=== PATIENT | male | born 1985 | race Caucasian/White ===

== ENCOUNTER 2016-07-20 23:59 | Emergency (ER) | payer BC ==
[2016-07-21] MEDS ORDERED: Ondansetron 4 MG/2 ML SDV IVPUSH ONE (00:48)
[2016-07-21] MEDS ORDERED: Sodium Chloride 0.9% 1,000 ML IV ONE ×2 (00:50→01:37)
[2016-07-21] MEDS ORDERED: fentaNYL 100 MCG/2 ML SDV IVPUSH ONE (01:35)
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
[2016-07-21] MEDS ORDERED: HYDROmorphone 0.5 MG/0.5 ML Syringe IVPUSH ONE (03:09)
[2016-07-21] MEDS ORDERED: HYDROmorphone 0.5 MG/0.5 ML Syringe ONE (03:13)
[2016-07-21] MEDS ORDERED: Dicyclomine 10 MG Cap PO ONE (04:04)
[2016-07-21] MEDS ORDERED: Iopamidol 612 MG/ML 150 ML Bottle IVPUSH ONE (06:13)
[2016-07-21] MEDS ORDERED: Diatrizoate Meglumine/Diatrizoate Sodium 37% 120 ML Bottle PO ONE (06:13)
--- NOTE | 2016-07-21 06:57 | CT ---
CT abdomen and pelvis Technique: Multiple axial sections were obtained from above the dome of the diaphragm inferiorly through the pubic symphysis. Intravenous and oral contrast was utilized. Comparison: No previous abdominal or pelvic CT exam, previous abdominal x-ray performed earlier on the same day is available. Findings: Visualized lung bases shows no acute change. Liver shows no focal parenchymal abnormality. Spleen appears within normal limits. Adrenal glands show no nodule. Pancreas is within normal limits. Kidneys show symmetric contrast enhancement without hydronephrosis or mass. Gallbladder shows no calcified gallstones. Aorta shows no aneurysmal dilatation. No retroperitoneal adenopathy or mesenteric abnormalities are seen. No pelvic mass or adenopathy is seen. Appendix is seen which appears normal. No pelvic mass or adenopathy is seen. Air-fluid levels are seen within the rectum and sigmoid colon and please correlate if patient has any symptoms of diarrhea. No small bowel dilatation is seen with contrast seen throughout small bowel into the colon. No free fluid or inflammatory change is seen. Delayed images shows contrast within the distal ureters and within the bladder. Bone window settings were reviewed which appears within normal limits for the patient's age. Small fat-containing umbilical hernia is noted. Impression: 1. Air-fluid levels within the rectosigmoid region. This may be incidental but may also be seen with diarrhea. Please correlate. 2. Several incidental findings as noted above. CT study of the abdomen and pelvis is otherwise unremarkable. Diagnostic code #2
[2016-07-21 07:46] VITALS: BP 122/71
--- NOTE | 2016-07-22 07:36 | CR ---
Abdomen: Supine and upright views of the abdomen were obtained. Scattered air-fluid levels within colon and small bowel are seen. Bowel gas pattern is otherwise unremarkable. Calcifications seen within the pelvis are likely due to phleboliths. Bony structures are unremarkable. No free air is seen. Impression: 1. Air-fluid levels within small bowel and colon which may be seen with gastroenteritis. No findings of bowel obstruction are seen. Diagnostic code #3
== END 2016-07-21 07:35 | disposition home or self-care (01) ==
LOC: JD.ED 23:59
DX: A08.4 Viral intestinal infection, unspecified (principal); R10.9 Unspecified abdominal pain; E78.00 Pure hypercholesterolemia, unspecified; J45.909 Unspecified asthma, uncomplicated; F41.9 Anxiety disorder, unspecified; Z88.8 Allergy status to other drugs, medicaments and biological substances; Z79.899 Other long term (current) drug therapy
CPT/HCPCS: 36415; 74020; 74177; 80053; 81001; 83690; 85025; 86140; 96361; 96374; 96375; 99285; J1170; J2405; J3010; J7040; Q9963; Q9967; 99284

== ENCOUNTER 2016-11-08 22:39 | Emergency (ER) | payer BC ==
[2016-11-08] MEDS ORDERED: Ondansetron 4 MG/2 ML SDV IVPUSH ONE (23:25)
[2016-11-08] MEDS ORDERED: HYDROmorphone 0.5 MG/0.5 ML Syringe IVPUSH ONE (23:26)
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
[2016-11-09] MEDS ORDERED: HYDROmorphone 1 MG/ML Syringe IVPUSH ONE (00:19)
[2016-11-09 01:24] VITALS: BP 143/59
--- NOTE | 2016-11-11 08:10 | CT ---
CT thoracic spine Technique: Multiple axial sections were obtained through the thoracic spine. Reconstructed sagittal and coronal images were reviewed. Comparison: No previous thoracic spine study. Findings: Vertebral body heights and disc spaces are maintained. Posterior ribs are intact. Vertebral bodies and posterior arches are intact. No fracture is seen. No bony central or bony neural foraminal stenosis is seen. No abnormal subluxation is seen on the reconstructed sagittal images. Minimal endplate osteophytes are seen laterally on the right side at T8-T9. Impression: 1. Minimal degenerative change. Nothing acute is seen on CT study of the thoracic spine. Diagnostic code #2 Agree with preliminary report issued by [facility] ([facility] report dictated on 11/09/16, 12:55 AM Central Time)
--- NOTE | 2016-11-11 08:10 | CR ---
Left shoulder: Three views of the left shoulder were obtained. Acromioclavicular and glenohumeral joints appear unremarkable. No fracture or other bony abnormality is seen. Impression: 1. No abnormality is identified on three-view left shoulder study. Diagnostic code #1
--- NOTE | 2016-11-11 08:10 | CT ---
CT cervical spine Technique: Multiple axial sections were obtained from above the C1 inferiorly to the bottom of T2. Reconstructed sagittal and coronal images were reviewed. Comparison: Previous CT cervical spine exam of 10/11/15. Findings: Visualized mastoid sinuses and middle ear cavities are clear. Posterior skull base is intact. Vertebral body heights and disc spaces are maintained. Vertebral bodies and posterior arches are intact. No fracture is seen. No bony central or bony neural foraminal stenosis is seen. No abnormal subluxation is seen. Impression: 1. No abnormality is identified on CT study of the cervical spine. No significant change is seen from previous CT cervical spine exam. Diagnostic code #1 Agree with preliminary report issued by [facility] ([facility] report dictated on 11/09/16, 12:31 AM Central Time)
--- NOTE | 2016-11-11 08:11 | CT ---
Head CT Technique: Multiple axial sections through the brain were obtained. Intravenous contrast was not utilized. Comparison: Previous head CT study of 10/11/15. Findings: Ventricles along with basal cisterns and sulci over the convexities are within normal limits for the patient's age. No abnormal parenchymal densities are seen. No evidence of intracranial hemorrhage. No midline shift or mass effect is seen. Bone window settings were reviewed which show no acute calvarial abnormality. Visualized sinuses are clear. Impression: 1. Nothing acute is identified on noncontrast head CT study. No significant change is seen from prior head CT exam. Diagnostic code #1 Agree with preliminary report issued by [facility] ([facility] report dictated on 11/09/16, 12:29 AM Central Time)
--- NOTE | 2016-11-11 08:11 | CT ---
Chest CT chest Technique: Multiple axial sections were obtained from above the lung apices inferiorly through the lung bases. Intravenous contrast was utilized. Comparison: Previous CT pulmonary angiogram performed on 02/14/11. Findings: No pericardial thickening is seen. Mediastinum and hilar regions appear normal. Slight soft tissue density is seen within the superior mediastinum which is compatible with minimal residual thymic tissue. Lungs are clear. No pleural effusion or pneumothorax is seen. Bone window settings were reviewed which show no discrete abnormality within the sternum on the reconstructed sagittal images. No discrete rib abnormality is appreciated. Impression: 1. Nothing acute is identified on CT study of the chest. Diagnostic code #1 Agree with preliminary report issued by [facility] ([facility] report dictated on 11/09/16, 12:39 AM Central Time) CT abdomen and pelvis Technique: Multiple axial sections were obtained from above the dome of the diaphragm inferiorly through the pubic symphysis. Intravenous contrast was utilized. Delayed images were also obtained from above the kidneys inferiorly through the bladder. No oral contrast has been given. Comparison: Previous CT abdomen and pelvis exam dated 07/21/16. Findings: Liver shows no focal abnormality. Spleen appears within normal limits. Adrenal glands show no nodule. Pancreas is within normal limits. Aorta shows no aneurysmal dilatation. No retroperitoneal adenopathy is seen. Kidneys show symmetric contrast enhancement with no hydronephrosis or mass. No mesenteric abnormalities are seen. Gallbladder shows no calcified gallstones. Appendix is seen which is normal. No pelvic mass or adenopathy is seen. Mild soft tissue hematoma is seen within the subcutaneous fat lateral to the left hip. Delayed images show contrast excretion for both kidneys with no contrast extravasation. Contrast is noted within the bladder. Bone window settings show no fracture within the pelvis or hips. Impression: 1. Subcutaneous hematoma within the fat lateral to the left hip. 2. Nothing acute is identified on CT study of the abdomen and pelvis. Diagnostic code #2 Agree with preliminary report issued by [facility] ([facility] report dictated on 11/09/16, 12:52 AM Central Time)
== END 2016-11-09 00:30 | disposition home or self-care (01) ==
LOC: JD.ED 22:39
DX: S06.0X0A Concussion without loss of consciousness, initial encounter (principal); S16.1XXA Strain of muscle, fascia and tendon at neck level, initial encounter; S29.019A Strain of muscle and tendon of unspecified wall of thorax, initial encounter; S40.012A Contusion of left shoulder, initial encounter; S70.02XA Contusion of left hip, initial encounter; R40.4 Transient alteration of awareness; E78.00 Pure hypercholesterolemia, unspecified; K21.9 Gastro-esophageal reflux disease without esophagitis; G43.909 Migraine, unspecified, not intractable, without status migrainosus; F41.9 Anxiety disorder, unspecified; Z88.1 Allergy status to other antibiotic agents; Z88.5 Allergy status to narcotic agent; Z96.22 Myringotomy tube(s) status; Z79.899 Other long term (current) drug therapy; Z98.890 Other specified postprocedural states; V80.010A Animal-rider injured by fall from or being thrown from horse in noncollision accident, initial encounter
CPT/HCPCS: 36415; 70450; 71260; 72125; 72128; 73030; 74177; 80053; 81001; 83690; 85025; 96374; 96375; 96376; 99285; J1170; J2405; 99284

== ENCOUNTER 2017-02-28 18:26 | Emergency (ER) | payer BC ==
[2017-02-28 19:05] VITALS: BP 132/81
[2017-02-28] MEDS ORDERED: HYDROmorphone 1 MG/ML Syringe IM STA (20:28)
[2017-02-28] MEDS ORDERED: Acetaminophen/oxyCODONE 325-5 MG Tab PO ONE (21:59)
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
--- NOTE | 2017-03-02 20:02 | CT ---
CT facial bones Technique: Multiple axial sections were obtained through the orbits. Intravenous contrast not utilized. Axial and coronal reconstructed images were obtained. Comparison: No prior facial bone CT. Findings: Right and left globes are symmetric. Paranasal sinuses are clear. No facial bone fracture is identified. Several minimal areas of erosion are noted within the right temporomandibular joint involving the mandibular condyle. Impression: 1. Several small erosions within the right temporomandibular joint involving the mandibular condyle. Please correlate if patient has any symptoms of rheumatoid arthritis or any right temporomandibular symptoms of other arthritis. Findings could be chronic. 2. CT study of the facial bones (centered to the orbits) otherwise is unremarkable. Diagnostic code #3 Agree with preliminary report issued by [facility], with additional nonacute finding within the right temporomandibular joint as noted above, ([facility] preliminary report dictated on 02/28/17, 10:34 PM Central Time)
== END 2017-02-28 22:18 | disposition home or self-care (01) ==
LOC: JD.ED 18:26
DX: S01.412A Laceration without foreign body of left cheek and temporomandibular area, initial encounter (principal); E78.00 Pure hypercholesterolemia, unspecified; K21.9 Gastro-esophageal reflux disease without esophagitis; W22.8XXA Striking against or struck by other objects, initial encounter; Z88.1 Allergy status to other antibiotic agents; Z79.899 Other long term (current) drug therapy; Z88.5 Allergy status to narcotic agent
CPT/HCPCS: 12011; 70486; 96372; 99284; A9270; J1170; 99283-25

== ENCOUNTER 2018-09-05 12:11 | Emergency (ER) | payer BC ==
[2018-09-05 12:34] VITALS: BP 114/71
[2018-09-05] MEDS ORDERED: Sodium Chloride 0.9% 1,000 ML IV ONE (13:56)
[2018-09-05] MEDS ORDERED: Promethazine 25 MG Tab PO ONE (14:01)
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
[2018-09-05] MEDS: Ketorolac 30 MG/ML SDV IM ONE ×2 (14:30→14:37)
== END 2018-09-05 15:30 | disposition home or self-care (01) ==
LOC: JD.ED 12:11
DX: B34.9 Viral infection, unspecified (principal); Z88.1 Allergy status to other antibiotic agents; Z88.6 Allergy status to analgesic agent; Z79.899 Other long term (current) drug therapy
CPT/HCPCS: 36415; 80053; 85025; 87804; 96360; 96372; 99283; J1885; J7040; J8597

== ENCOUNTER 2020-06-18 18:11 | Emergency (ER) | payer BC ==
[2020-06-18 18:39] VITALS: BP 124/79; PULSE 63
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
[2020-06-18 20:59] LABS: CORONAVIRUS COVID-19 NAA NEGATIVE (NEGATIVE)
== END 2020-06-18 22:00 | disposition home or self-care (01) ==
LOC: JD.ED 18:11
DX: B34.9 Viral infection, unspecified (principal); J45.909 Unspecified asthma, uncomplicated; K21.9 Gastro-esophageal reflux disease without esophagitis; Z20.822 Contact with and (suspected) exposure to COVID-19; Z88.1 Allergy status to other antibiotic agents; Z88.5 Allergy status to narcotic agent; Z79.899 Other long term (current) drug therapy; Z72.0 Tobacco use
CPT/HCPCS: 0240U; 36415; 80053; 81003; 85025; 86308; 99283; 99282